=== PATIENT | male | born 1960 | race African-American/Black ===

== ENCOUNTER 2021-04-24 18:46 | Emergency (ER) | payer OTHER ==
[2021-04-24 19:54] LABS: BASOPHIL 0.4 % (0-2); EOSINOPHIL 0.2 % (0-5); HCT 34.6 % (42.0-52.0); HGB 12.3 g/dl (13.2-18.0); LYMPHOCYTE 10.9 % (15-48); MCH 32.4 pg (25.0-31.0); MCHC 35.5 g/dL (32.0-36.0); MCV 91.1 fL (78.0-100.0); MONOCYTE 5.2 % (0-12); NEUTROPHIL 82.6 % (41-80); NRBC 0; PLT 313 K/uL (150-400); WBC 9.9 K/uL (4.0-10.5)
[2021-04-24 20:21] LABS: ALBUMIN 3.7 g/dL (3.4-5.0); BILIRUBIN - TOTAL 0.4 mg/dL (0.2-1.0); CREATININE 0.99 mg/dL (0.67-1.17); GLOBULIN (CALCULATION) 3.8 g/dL; POTASSIUM 3.1 mmol/L (3.5-5.1); TOTAL PROTEIN 7.5 g/dL (6.4-8.2)
== END 2021-04-24 22:05 | disposition home or self-care (01) ==
LOC: FER 18:46
PROVIDERS: Emergency Medicine
DX: G40.909 Epilepsy, unspecified, not intractable, without status epilepticus (principal); I10 Essential (primary) hypertension; Z79.899 Other long term (current) drug therapy
CPT/HCPCS: 36415; 70450; 80053; 85025; J1953; J7030

== ENCOUNTER 2021-05-15 14:00 | Emergency (ER) | payer OTHER ==
[2021-05-15 15:35] LABS: BASOPHIL 0.9 % (0-2); HCT 31.6 % (42.0-52.0); HGB 11.2 g/dl (13.2-18.0); LYMPHOCYTE 29.8 % (15-48); MCH 32.3 pg (25.0-31.0); MCHC 35.4 g/dL (32.0-36.0); MCV 91.1 fL (78.0-100.0); MONOCYTE 9.1 % (0-12); MPV 9.7 fL (6.0-9.5); NEUTROPHIL 56.8 % (41-80); NRBC 0; PLT 203 K/uL (150-400); RBC 3.47 M/uL (4.70-6.00); RDW 12.8 % (11.5-14.0); WBC 4.6 K/uL (4.0-10.5)
[2021-05-15 16:02] LABS: ALBUMIN 3.9 g/dL (3.4-5.0); ALKALINE PHOSHATASE 43 U/L (46-116); ALT 19 U/L (16-63); AST 28 U/L (15-37); BILIRUBIN - TOTAL 0.7 mg/dL (0.2-1.0); BUN 8 mg/dL (7-18); CHLORIDE 95 mmol/L (98-107); CO2 (BICARBONATE) 28 mmol/L (21-32); CREATININE 0.73 mg/dL (0.67-1.17); GLUCOSE 71 mg/dL (74-106); POTASSIUM 3.7 mmol/L (3.5-5.1); TOTAL PROTEIN 7.9 g/dL (6.4-8.2)
[2021-05-15 16:27] LABS: AMPHETAMINES NEGATIVE (NEGATIVE); BARBITURATES NEGATIVE (NEGATIVE); ECSTASY (MDMA) NEGATIVE (NEGATIVE); MARIJUANA (THC) NEGATIVE (NEGATIVE); METHADONE NEGATIVE (NEGATIVE); OPIATES NEGATIVE (NEGATIVE); OXYCODONE NEGATIVE (NEGATIVE)
== END 2021-05-15 19:41 | disposition home or self-care (01) ==
LOC: FER 14:00
PROVIDERS: Emergency Medicine
DX: R47.81 Slurred speech (principal); U07.1 COVID-19; I10 Essential (primary) hypertension
CPT/HCPCS: 36415; 70450; 70544; 70548; 70551; 71045; 80053; 80305; 84484; 85025; 93005; G0480; U0002